=== PATIENT | female | born 1995 | race African-American/Black ===

== ENCOUNTER 2018-10-01 20:24 | Emergency (ER) | payer MEDICAID ==
[~2018-10-01] VITALS: Ht 175.3 cm; Wt 72.6 kg
[2018-10-01] MEDS ORDERED: ALBUTEROL2.5 MG/3 M INH (20:31)
[2018-10-01 20:40] VITALS: BP 113/66
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
[2018-10-01] MEDS ORDERED: Bacitracin Oint UD TOPIC ONE (20:45)
[2018-10-01] MEDS ORDERED: Tetanus/Diptheria/Pertussis Vaccine 0.5ml Syr IM ONE (20:45)
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
[2018-10-01 21:10] LABS: APPEARANCE,URINE CLOUDY; BILIRUBIN, URINE NEGATIVE (NEGATIVE); COLOR,URINE AMBER; GLUCOSE, URINE (UA) NEGATIVE (NEGATIVE); KETONES,URINE 1+ (NEGATIVE); LEUKOCYTE ESTERASE ,URINE 2+ (NEGATIVE); NITRITE,URINE NEGATIVE (NEGATIVE); PH,URINE 5 (4.5-8.0); PROTEIN,URINE 2+ (NEGATIVE); UROBILINOGEN,URINE 4 MG/DL (0.0-1.0)
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
[2018-10-01] MEDS ORDERED: BACTRIM DS TAB1 EAC1 ORAL (21:40)
[2018-10-01] MEDS ORDERED: ALBUTEROL SULF8.5 GM INH (21:41)
[2018-10-01] MEDS ORDERED: BACITRACIN15 GM TOPIC (21:41)
[2018-10-01] MEDS ORDERED: Bactrim-DS 1 tab ORAL ONE (21:45)
[2018-10-01 21:51] VITALS: BP 110/68
--- NOTE | 2018-10-01 21:52 | NUR ---
ER Nurse Note: Pt seen, treated, medically cleared for discharge by ER MD. Discharge instructions and prescriptions given with repeat verbalization by pt. Instructed pt to follow up with primary care provider for follow up appointment. Pt a&ox4, VSS, no signs of distress. ID band removed. Pt ambulatory, left with all belongings via own transportation with friends.
== END 2018-10-01 21:52 | disposition home or self-care (01) ==
LOC: EMR 20:46
DX: S00.81XA Abrasion of other part of head, initial encounter (principal); S10.91XA Abrasion of unspecified part of neck, initial encounter; Y04.1XXA Assault by human bite, initial encounter; Y92.9 Unspecified place or not applicable; Z23 Encounter for immunization; N39.0 Urinary tract infection, site not specified; J45.909 Unspecified asthma, uncomplicated
CPT/HCPCS: 81003; 81025; 87086; 90471; 90715; 99284

== ENCOUNTER 2019-03-15 23:40 | Emergency (ER) | payer MEDICAID ==
[~2019-03-15] VITALS: Ht 175.3 cm; Wt 84.8 kg
[~2019-03-15 23:40] MED LIST: ALBUTEROL SULF8.5 GM INH; ALBUTEROL2.5 MG/3 M INH; BACITRACIN15 GM TOPIC; BACTRIM DS TAB1 EAC1 ORAL
[2019-03-15 23:45] VITALS: BP 155/60
--- NOTE | 2019-03-15 23:45 | NUR ---
ED Nurse Note: Patient presents with complaints of paiful rash at neck for 4 days.
[2019-03-16] MEDS ORDERED: MUPIROCIN22 GM TOPIC (00:10)
[2019-03-16] MEDS ORDERED: VALACYCLOVIR500 MG ORAL (00:10)
--- NOTE | 2019-03-16 00:11 | Emergency Room Report ---
History of Present Illness General Chief Complaint: Skin Rash/Abscess Source: Patient Present Illness [facility] This is a 23 yo female with h/o asthma who presents with c/o rash. onset 2 days ago. localized to left neck. itching and burning. no drainage. no fever or chills. no new meds. no pain. Allergies: Coded Allergies: No Known Allergies (Unverified , 10/01/18) Patient History Past Medical History: see triage record, old chart reviewed, asthma Past Surgical History: none Pertinent Family History: none Social History: Denies: smoking Last Menstrual Period: 02/01/19 Now: Yes : 3 Para: 2 Immunizations: other Reviewed Nursing Documentation: PMH: Agreed; PSxH: Agreed Nursing Documentation-PMH Past Medical History: No History, Except For Hx Asthma: Yes Review of Systems Eye: Denies: eye pain, blurred vision ENT: Denies: ear pain, nose congestion, throat swelling Respiratory: Denies: cough, shortness of breath Cardiovascular: Denies: chest pain, palpitations Gastrointestinal: Denies: abdominal pain, diarrhea, nausea, vomiting Musculoskeletal: Denies: back pain, joint pain Skin: Reports: rash Neurological: Denies: headache, numbness Endocrine: Denies: increased thirst, increased urine Hematologic/Lymphatic: Denies: easy bruising All Other Systems: negative except mentioned in HPI Physical Exam Vital Signs Date Time Temp Pulse Resp B/P (MAP) Pulse Ox O2 Delivery O2 Flow Rate FiO2 03/15/19 23:41 98.6 85 18 155/60 (91) 99 Room Air vitals with htn Sp02 EP Interpretation: reviewed, normal General Appearance: well appearing, no apparent distress, alert Head: normocephalic, atraumatic Eyes: bilateral eye PERRL, bilateral eye EOMI ENT: hearing grossly normal, normal pharynx Neck: full range of motion, supple, no meningismus Respiratory: chest non-tender, lungs clear, normal breath sounds Cardiovascular #1: regular rate, rhythm, no murmur Gastrointestinal: normal bowel sounds, non tender, no mass, no organomegaly, no bruit, non-distended Musculoskeletal: back normal, gait/station normal, normal range of motion Psychiatric: mood/affect normal Skin: warm/dry, other - Left nape of neck: vesicular lesion. Medical Decision Making Diagnostic Impression: Primary Impression: Shingles Qualified Codes: B02.9 - Zoster without complications ER Course pt with rash c/w shingles. no secondary infection. no abscess. Last Vital Signs Date Time Temp Pulse Resp B/P (MAP) Pulse Ox O2 Delivery O2 Flow Rate FiO2 03/15/19 23:41 98.6 85 18 155/60 (91) 99 Room Air Status: unchanged Disposition: HOME, SELF-CARE Condition: Stable Scripts Mupirocin* (MUPIROCIN*) 22 Gm Oint...g. 1 APPLIC TOPIC THREE TIMES A DAY, #22 GM Prov: Brenton Almazan MD 03/16/19 Valacyclovir Hcl* (VALTREX*) 500 Mg Tablet 1000 MG ORAL TID for 7 Days, TAB Prov: Brenton Almazan MD 03/16/19 Additional Instructions: Keep wound clean. Follow-up with your doctor in 7 days. Return if worse. Brenton Almazan MD Mar 16, 2019 00:11
--- NOTE | 2019-03-16 00:15 | NUR ---
ED Nurse Note: Patient cleared for discharge, verbalized understanding of discharge instructions, ID band removed, departed with all belongings accompanied by her sister.
== END 2019-03-16 00:15 | disposition home or self-care (01) ==
LOC: EMR 23:59
DX: B02.9 Zoster without complications (principal); J45.909 Unspecified asthma, uncomplicated
CPT/HCPCS: 99282

== ENCOUNTER 2019-05-03 13:53 | Emergency (ER) | payer MEDICAID ==
[~2019-05-03] VITALS: Ht 175.3 cm; Wt 82.6 kg
[~2019-05-03 13:53] MED LIST changes: +MUPIROCIN22 GM TOPIC; +VALACYCLOVIR500 MG ORAL
[2019-05-03 14:15] VITALS: BP 102/74
--- NOTE | 2019-05-03 14:15 | NUR ---
ED Nurse Note: pt walked in to ED due to fequent urination and foul smell. pt is 12 weeks . no cramping pain or vaginal spotting. AAO x4. respirations even and non-labored noted. will wait for the further order.
--- NOTE | 2019-05-03 14:30 | NUR ---
ED Nurse Note: pt went down for US. will draw blood after pt come back.
[2019-05-03 14:32] LABS: APPEARANCE,URINE CLEAR; BILIRUBIN, URINE NEGATIVE (NEGATIVE); GLUCOSE, URINE (UA) NEGATIVE (NEGATIVE); KETONES,URINE NEGATIVE (NEGATIVE); LEUKOCYTE ESTERASE ,URINE NEGATIVE (NEGATIVE); NITRITE,URINE NEGATIVE (NEGATIVE); PH,URINE 6 (4.5-8.0); PROTEIN,URINE NEGATIVE (NEGATIVE); UROBILINOGEN,URINE 1 MG/DL (0.0-1.0)
[2019-05-03 14:35] LABS: COLOR,URINE YELLOW
[2019-05-03] MEDS ORDERED: Metoclopramide 10mg/2ml Inj IVP ONE (14:45)
--- NOTE | 2019-05-03 15:51 | Diagnostic Imaging Report ---
Indication: Abdominal and pelvic pain. 23-year-old female Technique: Grayscale and duplex Doppler imaging of the pelvis performed utilizing a transabdominal scan and endovaginal scan. Comparison: None Findings: Single living intrauterine gestational age estimated at 13 weeks 4 days demonstrate. heart tones are measured. Fetus currently in transverse position and lie. Cervix is closed and measures 4.4 cm in length S demonstrated on the endovaginal portion of the study. Neither maternal ovary identified. There is no free fluid. IMPRESSION: Single living intrauterine 13 weeks 4 days gestational age. No acute findings identified
[2019-05-03 16:19] LABS: BASOPHILS % (AUTO) 0.8 % (0.0-2.0); HEMATOCRIT 34.9 % (37.0-47.0); HEMOGLOBIN 11.8 G/DL (12.0-16.0); LYMPHOCYTES % (AUTO) 25.4 % (20.0-45.0); MEAN CORPUSCULAR VOLUME 82 FL (80-99); MONOCYTES % (AUTO) 6.8 % (1.0-10.0); NEUTROPHILS % (AUTO) 63.1 % (45.0-75.0); PLATELET COUNT 179 K/UL (150-450); RED BLOOD COUNT 4.23 M/UL (4.20-5.40); RED CELL DISTRIBUTION WIDTH 11.8 % (11.6-14.8); WHITE BLOOD COUNT 8.8 K/UL (4.8-10.8)
--- NOTE | 2019-05-03 16:32 | Emergency Room Report ---
History of Present Illness General Chief Complaint: Female Urogenital Problems Source: Patient Present Illness HPI 23-year-old female with no significant past medical history who is G3, P2 here complaining of lower abdominal cramping and multiple bouts of emesis. Patient reports that she is 12 weeks based on her last menstrual period which was in January. Patient has not yet been seen by an LITERARY AGENT and has not had any ultrasound done. Has not started her vitamins. Patient denies smoking and alcohol intake. Denies chest pain, shortness of breath, palpitation , diarrhea. Denies bloody emesis. Denies vaginal bleeding, spotting, clotting. Denies syncope, lightheadedness, and all other associated symptoms. Patient reports that her symptoms started exacerbating 2 days ago. Allergies: Coded Allergies: No Known Allergies (Unverified , 10/01/18) Patient History Past Medical History: see triage record Past Surgical History: unable to obtain Pertinent Family History: none Last Menstrual Period: february 04 Now: Yes : 3 Para: 2 Immunizations: UTD Reviewed Nursing Documentation: PMH: Agreed; PSxH: Agreed Nursing Documentation-PMH Past Medical History: No History, Except For Hx Asthma: Yes Review of Systems All Other Systems: negative except mentioned in HPI Physical Exam Vital Signs Date Time Temp Pulse Resp B/P (MAP) Pulse Ox O2 Delivery O2 Flow Rate FiO2 05/03/19 14:10 98.4 100 18 102/74 (83) 99 Room Air Sp02 EP Interpretation: reviewed, normal General Appearance: alert, GCS 15, mild distress Head: normocephalic, atraumatic Eyes: bilateral eye normal inspection, bilateral eye PERRL ENT: normal ENT inspection, hearing grossly normal, normal pharynx Neck: normal inspection, full range of motion, supple Respiratory: normal inspection, chest non-tender, lungs clear, no rhonchi, no retraction, no wheezing Cardiovascular #1: normal inspection, regular rate, rhythm, no edema, no gallop , no murmur, normal capillary refill Gastrointestinal: normal inspection, non tender, soft, no mass, no peritonitis , no bruit, no guarding, no hernia, no pulsatile mass, no rebound Genitourinary: no CVA tenderness Musculoskeletal: normal inspection, back normal, digits/nails normal Neurologic: normal inspection, alert, oriented x3 Psychiatric: normal inspection, judgement/insight normal Skin: no rash Lymphatic: normal inspection, no adenopathy Medical Decision Making PA Attestation All my diagnosis and treatment plans were reviewed ad discussed with my supervising physician Dr. Wood Diagnostic Impression: Primary Impression: Abdominal pain affecting ER Course 23-year-old female with no significant past medical history who is G3, P2 here complaining of lower abdominal cramping and multiple bouts of emesis. Patient reports that she is 12 weeks based on her last menstrual period which was in January. Patient has not yet been seen by an LITERARY AGENT and has not had any ultrasound done. Has not started her vitamins. Patient denies smoking and alcohol intake. Denies chest pain, shortness of breath, palpitation , diarrhea. Denies bloody emesis. Denies vaginal bleeding, spotting, clotting. Denies syncope, lightheadedness, and all other associated symptoms. Patient reports that her symptoms started exacerbating 2 days ago. Ddx considered but are not limited to: appendicitis, cholecystis, gastritis, gastroenteritis, UTI, pyelonephritis, SBO, diverticulitis, influenza with GI manifestation, MT, complication with , abdominal pain affecting Vital signs: are WNL, pt. is afebrile H&PE are most consistent with: Abdominal pain affecting ORDERS: OB ultrasound, EKG, CBC, CMP, UA, beta hCG, type and screen, ferrous sulfate, vitamins ED INTERVENTIONS: NS bolus, Reglan DISCHARGE: At this time pt. is stable for d/c to home. Will provide printed patient care instructions, and any necessary prescriptions. Care plan and follow up instructions have been discussed with the patient prior to discharge. Follow-up with an LITERARY AGENT for further assessment take medication as directed if worsening symptoms return to the emergency room. At this time you have a normal OB ultrasound and in no distress EKG Diagnostic Results Rate: normal Rhythm: NSR ST Segments: no acute changes CT/MRI/US Diagnostic Results CT/MRI/US Diagnostic Results : Imaging Test Ordered: OB ultrasound Impression heart rate 154, 1 intrauterine , no subchorionic hemorrhage noted. Last Vital Signs Date Time Temp Pulse Resp B/P (MAP) Pulse Ox O2 Delivery O2 Flow Rate FiO2 05/03/19 14:15 98.4 100 18 102/74 99 Room Air Disposition: HOME, SELF-CARE Condition: Stable Scripts Ferrous Sulfate* (FERROUS SULFATE*) 325 Mg Tablet 325 MG ORAL TWICE A DAY, #60 TAB 0 Refills Prov: Laurita Estevez 05/03/19 Vit #76/Iron,Carb/Fa (PRENATABS RX TABLET) 1 Each Tablet 1 EACH PO DAILY, #30 TAB Prov: Laurita Estevez 05/03/19 Patient Instructions: Abdominal Pain During , [id number] Additional Instructions: Take your vitamins and iron pills as directed follow-up with an LITERARY AGENT avoid drinking alcohol, eating raw fish, smoking tobacco. Avoid lifting heavy objects. If vaginal bleeding and increased cramping with dizziness and passing out return to the emergency room. Laurita Estevez May 03, 2019 16:32
[2019-05-03] MEDS ORDERED: PRENATABS RX T1 EACH PO (16:34)
[2019-05-03] MEDS ORDERED: FERROUS SULFAT325 MG ORAL (16:34)
[2019-05-03 16:37] LABS: ANION GAP 11 mmol/L (5-15); BLOOD UREA NITROGEN 11 mg/dL (7-18); CALCIUM 9.4 MG/DL (8.5-10.1); CARBON DIOXIDE 22 MMOL/L (21-32); CHLORIDE 104 MMOL/L (98-107); CREATININE 0.7 MG/DL (0.55-1.30); POTASSIUM 3.6 MMOL/L (3.5-5.1); SODIUM 137 MMOL/L (136-145)
[2019-05-03 16:41] LABS: ALANINE AMINOTRANSFERASE 16 U/L (12-78); ALBUMIN 3.5 G/DL (3.4-5.0); ALBUMIN/GLOBULIN RATIO 0.7 (1.0-2.7); ALKALINE PHOSPHATASE 49 U/L (46-116); ASPARTATE AMINO TRANSFERASE 15 U/L (15-37); BILIRUBIN,TOTAL 0.4 MG/DL (0.2-1.0)
[2019-05-03 17:19] VITALS: BP 111/70
--- NOTE | 2019-05-03 17:20 | NUR ---
ER DISCHARGE NOTE: Patient is cleared to be discharged per ERMD with friend, pt is aox4, on room air, with stable vital signs. pt was given dc and prescription instructions, pt was able to verbalize understanding, pt id band and iv site removed without complications. pt is able to ambulate with steady gait. pt took all belongings.
== END 2019-05-03 17:21 | disposition home or self-care (01) ==
LOC: EMR 14:20
DX: O26.891 Other specified pregnancy related conditions, first trimester (principal); Z3A.12 12 weeks gestation of pregnancy; R10.30 Lower abdominal pain, unspecified; O99.511 Diseases of the respiratory system complicating pregnancy, first trimester; J45.909 Unspecified asthma, uncomplicated
CPT/HCPCS: 36415; 76801; 76830; 80053; 81001; 84702; 85025; 86850; 86900; 86901; 87491; 87590; 93005; 96361; 96374; 99284; J2765

== ENCOUNTER 2020-12-11 10:34 | Emergency (ER) | payer MEDICAID ==
[~2020-12-11] VITALS: Ht 170.2 cm; Wt 81.6 kg
[~2020-12-11 10:34] MED LIST changes: +FERROUS SULFAT325 MG ORAL; +PRENATABS RX T1 EACH PO
[2020-12-11 10:48] VITALS: BP 123/62
--- NOTE | 2020-12-11 10:50 | NUR ---
pt arrives to ER with complaints of recent positive STD testing for gonorrhea and chlamydia on Tuesday. pt denies any symptoms. pt states getting a routine pap smear with STD testing. pt states facility does not provide treatment for STD. Pt denies pain, discomfort, or discharge at this time. urine sample collected upon arrival.
[2020-12-11] MEDS ORDERED: METROGEL-VAGINA70 G1 VAGIN (10:59)
--- NOTE | 2020-12-12 16:19 | Emergency Room Report ---
History of Present Illness General Chief Complaint: Female Urogenital Problems Source: Patient Present Illness HPI Patient is a 25-year-old female who presents for possible treatment for sexually transmitted disease. She had recently received a report from her COATINGS INSPECTOR who had done routine testing and patient believe that this was positive for STDs. Patient denies any current symptoms other than some slight vaginal itching. Had prior history of abnormal Pap smear and had prior LEEP procedure. Denies any other current complaints. Denies any vaginal discharge or bleeding. No pelvic pain. Allergies: Coded Allergies: No Known Allergies (Unverified , 10/01/18) COVID-19 Screening Contact w/high risk pt: No Experienced COVID-19 symptoms?: No COVID-19 Testing performed POURER BULL LADLE: No COVID-19 Screening: Negative COVID-19 Patient History Past Medical History: see triage record Reviewed Nursing Documentation: PMH: Agreed; PSxH: Agreed Nursing Documentation-PMH Hx Cardiac Problems: No Hx Hypertension: No Hx Pacemaker: No Hx Asthma: Yes Hx COPD: No Hx Diabetes: No Hx Cancer: No Hx Gastrointestinal Problems: No Hx Dialysis: No History Of Psychiatric Problem: No Hx Neurological Problems: No Hx Cerebrovascular Accident: No Hx Seizures: No Review of Systems All Other Systems: negative except mentioned in HPI Physical Exam Vital Signs Date Time Temp Pulse Resp B/P (MAP) Pulse Ox O2 Delivery O2 Flow Rate FiO2 12/11/20 10:43 98.2 78 18 123/62 (82) 100 Room Air General Appearance: well appearing, no apparent distress, alert, GCS 15 Head: normocephalic, atraumatic ENT: hearing grossly normal, normal voice Neck: full range of motion, supple Respiratory: no respiratory distress, speaking full sentences Cardiovascular #1: normal inspection, regular rate, rhythm, no edema Gastrointestinal: normal inspection, non tender, soft Musculoskeletal: no calf tenderness Neurologic: oriented x3, normal gait Psychiatric: normal inspection, mood/affect normal Skin: no rash Medical Decision Making Diagnostic Impression: Primary Impression: Encounter for medical screening examination ER Course Patient presents for abnormal laboratory testing. Differential diagnosis include was not limited to STD, vaginitis, among others. Patient has a benign exam and does not appear to require any imaging or laboratory testing at this time. Patient had recent testing performed. She had apparently misunderstood the results. lab results from these testing were currently pending and did not show any evidence of gonorrhea or chlamydia at this time. I contacted her physician's office and they did not have any results from this testing as of yet. Patient elected to defer treatment at this time. she is given prescription for metronidazole gel due to vaginitis. Patient was advised to follow-up with her physician for test results when a resulted. This medical record is generated with [email or web address] traffic control specialist software. There may be some traffic control specialist discrepancies related to use of this software Last Vital Signs Date Time Temp Pulse Resp B/P (MAP) Pulse Ox O2 Delivery O2 Flow Rate FiO2 12/11/20 10:48 98.2 18 123/62 100 Room Air 12/11/20 10:43 78 Status: improved Disposition: HOME, SELF-CARE Condition: Stable Scripts Metronidazole* (METROGEL-VAGINAL*) 70 Gm Gel.w.appl 1 APPL VAGIN EVERY 12 HOURS, #70 GM Prov: Shahid Osborne MD 12/11/20 Referrals: [facility] (PCP) Patient Instructions: Vaginitis Additional Instructions: Follow up with your obgyn for results of your testing. Return if worse. Shahid Osborne MD Dec 12, 2020 16:19
== END 2020-12-11 12:00 | disposition home or self-care (01) ==
LOC: EMR 11:04
DX: L29.2 Pruritus vulvae (principal)
CPT/HCPCS: 99282